=== PATIENT | male | born 1965 | race Caucasian/White ===

== ENCOUNTER 2020-10-04 01:19 | Day surgery (SDC) | payer OTHER, SELFPAY ==
[2020-10-02 13:26] VITALS: BMI 41.1
--- NOTE | 2020-10-03 14:09 | WPDANESEPPF ---
Anes - Initial Pre Proc Eval Procedure: Operation Date: 10/04/20 10:30 Proposed Procedures p Repair Umbilical Hernia with Mesh - Wesley Stallworth MD Date/Time: 10/03/20 14:09 Surgeon: Wesley Stallworth MD Pre Op Diagnosis: umbilical hernia Patient Data Age: 55 Gender: M Height: 1.85 m Weight: 141.5 kg Allergies Allergy/AdvReac Type Severity Reaction Status Date / Time No Known Drug Allergies Allergy Mild Unknown Verified 10/04/20 08:44 Home Medications Medication Instructions Recorded Confirmed Type allopurinol 300 mg tablet 300 mg PO DAILY 08/22/20 10/02/20 History cyclobenzaprine 5 mg tablet 5 mg PO TID PRN 08/22/20 10/02/20 History fenofibrate 160 mg tablet 160 mg PO DAILY 08/22/20 10/02/20 History hydrocodone 5 mg-acetaminophen 325 1 tablet PO Q8H PRN 08/22/20 10/02/20 History mg tablet levothyroxine 150 mcg tablet 150 mcg PO DAILY 08/22/20 10/02/20 History simvastatin 20 mg tablet 20 mg PO DAILY 08/22/20 10/02/20 History Patient hx anesthesia problems: none Family hx anesthesia problems: none PMFSH Past Medical History Medical History Arthritis Gout High cholesterol Hypothyroidism Surgical History Surgical History History of left knee replacement History of right inguinal hernia repair History of tonsillectomy Family History Family History Father , age 66 Cerebrovascular accident Gout Sibling , age 58 Cerebrovascular accident Sibling Diabetes mellitus Other Family history of arthritis Family history of gout Social History Social History Smoking status: Never smoker Second hand tobacco smoke exposure: Yes Alcohol intake: current Drinks per week: 2 Alcohol use details: few beers a week Substance use: never Substance use type: does not use Living arrangements: with family Additional occupation/education comments: Outside Operator Spiritual care concerns: No Anes - Eval Final PreProcedure Day of Procedure 10/03/20 14:09 Patient weight: morbidly obese Heart: regular rate and rhythm Lungs: clear to auscultation and normal air movement Airway: Mallampati scale class III Neurological: alert and oriented Last oral intake: >/= 8 hours ASA classification: III Emergent: no Anesthetic plan: proceed Anesthesia type and monitoring: general GIVS and standard monitoring Informed Consent: The patient's anesthetic plan and its attendant risks and benefits were discussed with the patient/family/POA. Questions were solicited and answers provided to the satisfaction of the patient/family/POA.
--- NOTE | 2020-10-04 07:20 | PM.SD2 ---
Same Day Admit/Disch: HPI History of Present Illness Chief complaint: umbilical hernia Narrative: Kee Pizarro is a 55 year old male With a longstanding umbilical bulge. It had been getting larger. He was seen in the office and found to have a reducible umbilical hernia. He is taken to surgery now for repair. [facility] Past Medical History Medical History Arthritis Gout High cholesterol Hypothyroidism Surgical History Surgical History History of left knee replacement History of right inguinal hernia repair History of tonsillectomy Family History Family History Father , age 66 Cerebrovascular accident Gout Sibling , age 58 Cerebrovascular accident Sibling Diabetes mellitus Other Family history of arthritis Family history of gout Social History Social History Smoking status: Never smoker Second hand tobacco smoke exposure: Yes Alcohol intake: current Drinks per week: 2 Alcohol use details: few beers a week Substance use: never Substance use type: does not use Living arrangements: with family 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 Spiritual care concerns: No Same Day Admit/Disch: Med Pre-admit Medications Home Medications Medication Instructions Recorded Confirmed Type allopurinol 300 mg tablet 300 mg PO DAILY 08/22/20 10/02/20 History cyclobenzaprine 5 mg tablet 5 mg PO TID PRN 08/22/20 10/02/20 History fenofibrate 160 mg tablet 160 mg PO DAILY 08/22/20 10/02/20 History hydrocodone 5 mg-acetaminophen 325 1 tablet PO Q8H PRN 08/22/20 10/02/20 History mg tablet levothyroxine 150 mcg tablet 150 mcg PO DAILY 08/22/20 10/02/20 History simvastatin 20 mg tablet 20 mg PO DAILY 08/22/20 10/02/20 History hydrocodone-acetaminophen 1 - 2 tablet PO Q6H PRN #20 tablet 10/04/20 Rx ketorolac 10 mg PO Q6H 4 Days #16 tablet 10/04/20 Rx Exam Const: General: comfortable, no acute distress, alert and awake HENMT: Head: normocephalic and atraumatic Mouth: Yes Normal oral and palatal mucosa present Eyes: Conjunctivae: conjunctivae normal Pupils: Equal, round and reactive pupils present EOM: EOMs intact bilaterally Neck: Neck: normal visual inspection, no lymphadenopathy and nontender Resp: Effort & Inspection: normal respiratory effort Auscultation: clear to auscultation bilaterally Cardio: Rate: regular rate Rhythm: regular rhythm Heart sounds: no gallops, no murmurs and no rubs GI: Inspection: non-distended, obesity and visible herniation ( Umbilical, large, reducible, dusky overlying skin) GI Palp: Yes Soft to palpation, No Tenderness to palpation present (GI), No Hepatomegaly present, No Splenomegaly present and Yes Hernia present ( umbilical, reducible) Skin: Lesions: no lesions Rashes: no rashes Neuro: General: no focal motor deficits and CN's II-XI intact bilaterally Cranial nerves: Yes Equal, round and reactive pupils present, Yes Bilaterally intact EOM present, Yes facial symmetry and Yes Midline tongue present Speech: normal speech Motor exam (neuro): 5/5 motor strength present throughout and Motor abnormalities not present Extrem: General: no clubbing, cyanosis or edema and edema Psych: Affect: normal affect Thought process: Normal thought process present Insight: Good insight present (Psych) DS: Summary Time Spent with Patient Time attestation: Total time spent providing and/or coordinating discharge services: DS: Admitting Diagnosis Admitting Diagnosis Admitting Diagnosis: symptomatic reducible umbilical hernia -plan to repair under anesthesia as an outpatient. The procedure the risks benefits have been discussed. All questions were answered. He understands and agrees to go ahead. Morbid obes
--- NOTE | 2020-10-04 07:24 | WPDHPUPDATE1 ---
History and Physical Update Update Date/Time: 10/04/20 07:24 History and Physical has been reviewed, including an updated exam of the patient. There are NO changes in the patient's condition. Risks, benefits, and alternatives have been discussed and questions answered. Patient agrees to proceed with procedure.
[2020-10-04 08:45] VITALS: BMI 39.6
[2020-10-04 09:15] VITALS: BP 112/67; PULSE 73; RESP 16; TEMP 36.3; O2SAT 98
[2020-10-04] MEDS: ACETAMINOPHEN 500 MG TABLET 1000 MG PO (09:29)
[2020-10-04] MEDS: LACTATED RINGERS 1,000 ML 30 ML IV CONT ×2 (09:35→11:46)
[2020-10-04] MEDS: KETOROLAC 15 MG/ML VIAL (*BKC) IV PUSH (09:36)
[2020-10-04] MEDS: ceFAZolin 3 GM/D5W 100 ML 100 ML IVPB (10:40)
[2020-10-04] MEDS: BUPIVACAINE/EPINEPHRINE 0.5% 50 ML VIAL (11:24)
--- NOTE | 2020-10-04 11:44 | W.PM.PROC2 ---
Procedure Note - Detailed Date of Procedure 10/04/20 Pre-op Diagnosis umbilical hernia Post-op Diagnosis same Procedure Performed umbilical hernia repair with 6.6 cm Parietex underlay mesh Surgeon Wesley Stallworth MD Nuclear Medicine Technician marivel juarez CAREER GUIDANCE TECHNICIAN Anesthesia general and local ( 0.5% Marcaine with epinephrine) Indications patient has an enlarging symptomatic but reducible umbilical hernia with some dusky overlying skin. He is taken to surgery now for umbilical hernia repair with mesh. Findings Showed about a 1.5 cm defect Description of Procedure patient was taken to surgery and induced into general anesthesia per LMA. Prep and drape was carried out. The proposed incision was marked along the lower margin of the umbilicus which coincided with the majority of the hernia bulge. Local was infiltrated in the area of the anticipated incision. Incision was made dissection was carried down through the skin to the subcutaneous and the hernia sac. The sac was just below the skin. I dissected the hernia sac from the overlying skin and the surrounding subcutaneous tissue. I dissected this hernia down to its neck. Additional local was infiltrated into the neck of the hernia sac. I then used the cautery to incise the hernia sac at its neck circumferentially. The sac and some of the chronically herniated omentum were removed using the cautery. No bleeding was encountered. This tissue was discarded. Some additional cautery was required for the ends of the omentum. The omentum was then reduced and I put a finger into the hernia defect and felt for any adhesions or other hernias in the area. None were found. A 6.6 cm Parietex [place] was chosen and placed in the hernia defect. It was position symmetrically. 0 Ethibond sutures were then placed in the cranial and caudad midline. These sutures were placed in such a fashion that they would advanced the edges of the hernia defect towards 1 another when tied. I then tied the transfascial sutures in the had the desired effect. The hernia defect was then closed incorporating a bit of mesh which each of the sutures. The repair looked very good. I infiltrated additional local all around the area of the repair and into the adjacent subcutaneous. I then sutured the umbilical skin to the fascia with 3 0 Vicryl suture. Subcutaneous 3 0 and 4 0 Vicryl sutures were then placed. Subcuticular interrupted 4 0 Vicryl skin stitches were placed. Finally a running 4 Monocryl skin suture was used to close the skin. Wound was dressed with Exofin surgical adhesive. The patient was awakened and taken to recovery in good condition. Sponge needle counts were correct x2. No complications were noted. Estimated Blood Loss 5 Drains No Packing No Pathology none sent Complications None Condition stable Disposition same day
[2020-10-04 11:46] VITALS: BP 115/68; PULSE 85; RESP 16; O2SAT 92
[2020-10-04 12:15] VITALS: BP 120/69; PULSE 82
--- NOTE | 2020-10-04 13:08 | SUR.PHASEII ---
Vitals weren't cycling q15 min so that is why there was a lapse in charting. Patient was stable at discharge. Spouse present in room.
== END 2020-10-04 12:53 | disposition home or self-care (01) ==
PROVIDERS: PCP Family Medicine; Visit Provider Surgery
PROC: (CPT 49585; principal; 2020-10-04 10:30)
DX: K42.9 Umbilical hernia without obstruction or gangrene (principal); E78.00 Pure hypercholesterolemia, unspecified; E03.9 Hypothyroidism, unspecified; M10.9 Gout, unspecified; M19.90 Unspecified osteoarthritis, unspecified site
CPT/HCPCS: 49585; A9270; C1781; J0690; J1885; J2704; J3010; J7120

== ENCOUNTER 2020-11-16 07:50 | Outpatient (CLI) | payer OTHER, SELFPAY ==
[2020-11-16 08:40] LABS: Alanine Aminotransferase 40 U/L (4-50); Albumin Level 4.3 g/dL (3.5-5.1); Alkaline Phosphatase 60 U/L (38-126); Anion Gap 8 mmol/L (8-16); Aspartate Amino Transferase 36 U/L (17-59); Bilirubin,Total 0.9 mg/dL (0.2-1.3); Blood Urea Nitrogen 12 mg/dL (9-20); Calcium 9.4 mg/dL (8.4-10.2); Carbon Dioxide 26 mmol/L (22-30); Chloride 104 mmol/L (98-107); Cholesterol 118 mg/dL (0-200); Estimated Glomerular Filt Rate > 60; Glucose 119 mg/dL (65-110); HDL Direct 27 mg/dL; Potassium 4.2 mmol/L (3.4-5.0); Sodium 138 mmol/L (137-145); Triglycerides 125 mg/dL (<150)
[2020-11-16 08:41] LABS: LDL Cholesterol Direct 56 mg/dL
[2020-11-16 09:01] LABS: Prostate Specific Antigen 0.3 ng/mL (< OR = 4.0)
== END 2020-11-16 07:51 | disposition home or self-care (01) ==
PROVIDERS: PCP Family Medicine; Visit Provider Family Medicine
DX: Z13.220 Encounter for screening for lipoid disorders (principal); E03.9 Hypothyroidism, unspecified; Z12.5 Encounter for screening for malignant neoplasm of prostate
CPT/HCPCS: 36415; 80053; 80061; 84153; 84443; G0103

== ENCOUNTER 2023-01-23 05:21 | Day surgery (SDC) | payer OTHER, SELFPAY ==
[2023-01-12 11:56] VITALS: BMI 37.8
--- NOTE | 2023-01-22 13:08 | P.PNAN_ITS ---
Anes - Initial Pre Proc Eval Procedure: Operation Date: 01/23/23 09:30 Proposed Procedures p Screening Colonoscopy - Alejandro Liu MD Date/Time: 01/22/23 13:08 Surgeon: Alejandro Liu MD Pre Op Diagnosis: neoplasm screening Patient Data Age: 57 Gender: M Height: 1.85 m Weight: 130 kg Allergies Allergy/AdvReac Type Severity Reaction Status Date / Time No Known Drug Allergies Allergy Mild Unknown Verified 01/23/23 08:24 Home Medications Medication Instructions Recorded Confirmed Type allopurinol 300 mg tablet 300 mg PO DAILY 08/22/20 01/23/23 History cyclobenzaprine 5 mg tablet 5 mg PO TID PRN Anxiety 08/22/20 01/23/23 History fenofibrate 160 mg tablet 160 mg PO DAILY 08/22/20 01/23/23 History hydrocodone 5 mg-acetaminophen 325 1 tablet PO Q8H PRN pain 08/22/20 01/23/23 History mg tablet levothyroxine 150 mcg tablet 150 mcg PO DAILY 08/22/20 01/23/23 History (Synthroid) simvastatin 20 mg tablet 20 mg PO DAILY 08/22/20 01/23/23 History phentermine 37.5 mg tablet 37.5 mg PO DAILY 01/12/23 01/23/23 History Patient hx anesthesia problems: none Family hx anesthesia problems: none Results Review: All pre-operative results and documents have been reviewed as part of the pre- operative evaluation. [facility] Past Medical History Medical History Arthritis Gout High cholesterol Hypothyroidism Surgical History Surgical History H/O umbilical hernia repair umbilical hernia repair with 6.6 cm Parietex underlay mesh History of left knee replacement History of right inguinal hernia repair History of tonsillectomy Family History Family History Father , age 66 Cerebrovascular accident Gout Sibling , age 58 Cerebrovascular accident Sibling Diabetes mellitus Other Family history of arthritis Family history of gout Social History Social History Second hand tobacco smoke exposure: Yes Alcohol intake: current Drinks per week: 2 Alcohol use details: few beers a week Substance use: never Substance use type: does not use Living arrangements: with family Occupation/Education: occupation 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 Informed Consent: The patient's anesthetic plan and its attendant risks and benefits were discussed with the patient/family/POA. Questions were solicited and answers provided to the satisfaction of the patient/family/POA.
--- NOTE | 2023-01-22 15:19 | P.HP_ITS ---
History of Present Illness History of Present Illness Consent: Risks, benefits, and alternatives have been discussed and questions answered. Patient agrees to proceed with procedure. Chief complaint: neoplasm screening Narrative: Kee Pizarro is a 57 year old male who is referred for colon cancer screening. Review of Systems Review of Systems: All systems reviewed & are unremarkable except as noted in HPI and below PMFSH Past Medical History Medical History Arthritis Gout High cholesterol Hypothyroidism Surgical History Surgical History H/O umbilical hernia repair umbilical hernia repair with 6.6 cm Parietex underlay mesh History of left knee replacement History of right inguinal hernia repair History of tonsillectomy Family History Family History Father , age 66 Cerebrovascular accident Gout Sibling , age 58 Cerebrovascular accident Sibling Diabetes mellitus Other Family history of arthritis Family history of gout Social History Social History Second hand tobacco smoke exposure: Yes Alcohol intake: current Drinks per week: 2 Alcohol use details: few beers a week Substance use: never Substance use type: does not use Living arrangements: with family Occupation/Education: occupation 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 Spiritual care concerns: No Meds Home Medications and Allergies Home Medications Medication Instructions Recorded Confirmed Type allopurinol 300 mg tablet 300 mg PO DAILY 08/22/20 01/23/23 History cyclobenzaprine 5 mg tablet 5 mg PO TID PRN Anxiety 08/22/20 01/23/23 History fenofibrate 160 mg tablet 160 mg PO DAILY 08/22/20 01/23/23 History hydrocodone 5 mg-acetaminophen 325 1 tablet PO Q8H PRN pain 08/22/20 01/23/23 History mg tablet levothyroxine 150 mcg tablet 150 mcg PO DAILY 08/22/20 01/23/23 History (Synthroid) simvastatin 20 mg tablet 20 mg PO DAILY 08/22/20 01/23/23 History phentermine 37.5 mg tablet 37.5 mg PO DAILY 01/12/23 01/23/23 History Allergies Allergy/AdvReac Type Severity Reaction Status Date / Time No Known Drug Allergies Allergy Mild Unknown Verified 01/23/23 08:24 Exam Const: General: alert Orientation/consciousness: patient oriented x3 Resp: Auscultation: clear to auscultation bilaterally Cardio: Rhythm: regular rhythm GI: GI Palp: Yes Soft to palpation and No Tenderness to palpation present (GI) Neuro: General: patient oriented x3 Assessment and Plan Assessment and plan (1) Colon cancer screening: Code(s): Z12.11 - Encounter for screening for malignant neoplasm of colon Status: Acute Assessment and Plan: Colonoscopy with possible biopsy or polypectomy or cautery or injection of substances.
[2023-01-23 08:25] VITALS: BP 132/76; PULSE 69; RESP 16; TEMP 36.6; O2SAT 99; BMI 37.4
[2023-01-23] MEDS: LACTATED RINGERS 1,000 ML 150 ML IV CONT (08:34)
[2023-01-23 09:35] VITALS: BP 100/71; PULSE 74; RESP 17; O2SAT 97
[2023-01-23 09:45] VITALS: BP 109/77; PULSE 63; RESP 17; O2SAT 97
[2023-01-23 09:55] VITALS: BP 115/74; PULSE 60; RESP 18; O2SAT 97
== END 2023-01-23 10:01 | disposition home or self-care (01) ==
PROVIDERS: PCP Family Medicine; Visit Provider Internal Medicine Gastroenterology
PROC: 0DJD8ZZ Inspection of Lower Intestinal Tract, Via Natural or Artificial Opening Endoscopic (ICD-10-PCS; CPT 45378; principal; 2023-01-23 09:30)
DX: Z12.11 Encounter for screening for malignant neoplasm of colon (principal); D12.5 Benign neoplasm of sigmoid colon; E03.9 Hypothyroidism, unspecified; E78.00 Pure hypercholesterolemia, unspecified; M10.9 Gout, unspecified; E66.9 Obesity, unspecified; Z68.37 Body mass index [BMI] 37.0-37.9, adult
CPT/HCPCS: 45378; 88305; J2704; J7120

== ENCOUNTER 2024-09-20 10:14 | Outpatient (CLI) | payer OTHER, SELFPAY ==
--- NOTE | ~2024-09-20 | XR_ITS ---
3 VIEWS LUMBAR SPINE Ordering provider: Thaddeus Saavedra, History: . Low back pain, other chronic pain . Comparison: None. FINDINGS: VERTEBRAL BODIES:Minimal anterolisthesis at the level of L4-L5. No visible fracture or subluxation. Degenerative changes of the spine. Mild scoliosis. DISK SPACES: Narrowing of the disc L1-L2, L2-L3, and L4-L5. Multilevel facet joint disease. SOFT TISSUES: Normal. IMPRESSION: No acute osseous abnormality lumbar spine. Multilevel degenerative disc disease. Reviewed, dictated and finalized at location A.
== END 2024-09-20 10:15 | disposition home or self-care (01) ==
LOC: MICIMG 10:16
PROVIDERS: PCP Family Medicine; Visit Provider Family Medicine
DX: M51.360 Other intervertebral disc degeneration, lumbar region with discogenic back pain only (principal); G89.29 Other chronic pain
CPT/HCPCS: 72110

== ENCOUNTER 2024-12-15 06:45 | Outpatient (CLI) | payer OTHER, SELFPAY ==
[2024-12-15 07:09] LABS: Hematocrit 47.3 % (42.0-52.0); Hemoglobin 16.2 g/dL (14.0-18.0); Immature Granulocyte Percent A 0.8 % (0-0.5); Lymphocytes Absolute Auto 1.74 K/mm3 (0.9-3.2); Mean Corpuscular HGB Conc 34.2 g/dl (32-36); Mean Corpuscular Hemoglobin 32.3 pg (26-34); Mean Corpuscular Volume 94.4 fl (80-100); Nucleated Red Blood Cells Absolute Auto 0.000 K/mm3 (0.0-0.012); Nucleated Red Blood Cells Perc 0.0 % (0.0-0.2); Platelet Count Result 263 k/mm3 (150-375); Red Blood Count 5.01 M/mm3 (4.6-6.20); White Blood Count 9.0 K/mm3 (4.5-10.0)
[2024-12-15 07:33] LABS: Alanine Aminotransferase 26 U/L (6-50); Albumin Level 4.1 g/dL (3.5-5.1); Alkaline Phosphatase 58 U/L (38-126); Anion Gap 8 mmol/L (4-12); Aspartate Amino Transferase 23 U/L (17-59); Bilirubin,Total 0.7 mg/dL (0.2-1.3); Blood Urea Nitrogen 19 mg/dL (9-20); Calcium 9.5 mg/dL (8.4-10.2); Carbon Dioxide 22 mmol/L (22-30); Chloride 107 mmol/L (98-107); Cholesterol 132 mg/dL (0-200); Estimated Glomerular Filt Rate > 60; Glucose 138 mg/dL (65-110); HDL Direct 51 mg/dL; Magnesium 2.3 mg/dL (1.6-2.3); Potassium 4.3 mmol/L (3.4-5.0); Sodium 137 mmol/L (137-145); Total Protein 7.2 g/dL (6.3-8.2); Triglycerides 47 mg/dL (<150); Uric Acid 4.4 mg/dL (3.5-8.5)
[2024-12-15 07:41] LABS: Add Urine Microscopic? YES; Appearance Urine Clear (Clear); Glucose Urine UA Negative (Negative); Leukocyte Esterase Ur Negative LEU/UL (Negative); Nitrate Urine Negative (Negative); Non Pathogenic Casts 0-2; Specific Grav Ur 1.021 (1.001-1.035)
[2024-12-15 07:43] LABS: Hemoglobin A1C 5.5 % (<5.7)
[2024-12-15 08:08] LABS: Prostate Specific Antigen 0.3 ng/mL (< OR = 4.0)
[2024-12-15 08:44] LABS: Vitamin B12 668.0 pg/mL (239-931)
[2024-12-15 09:39] LABS: Thyroid Stimulating Hormone Reflex 0.128 uIU/mL (0.465-4.68)
[2024-12-15 10:26] LABS: Free T4 Free Thyroxine Reflex 1.30 ng/dL (0.78-2.19)
[2024-12-15 11:11] LABS: Total Triiodothyronine (T3) 1.03 NG/ML (0.82-1.58)
== END 2024-12-15 06:46 | disposition home or self-care (01) ==
LOC: ANHLAB 06:47
PROVIDERS: PCP Family Medicine; Visit Provider Family Medicine
DX: Z00.00 Encounter for general adult medical examination without abnormal findings (principal); I10 Essential (primary) hypertension; E66.9 Obesity, unspecified; R78.89 Finding of other specified substances, not normally found in blood; E55.9 Vitamin D deficiency, unspecified; M10.9 Gout, unspecified; M54.50 Low back pain, unspecified; G89.29 Other chronic pain; R79.89 Other specified abnormal findings of blood chemistry
CPT/HCPCS: 36415; 80053; 80061; 81001; 82306; 82607; 82746; 83036; 83735; 84153; 84439; 84443; 84480; 84550; 85025; G0103

== ENCOUNTER 2025-01-04 08:34 | Outpatient (CLI) | payer OTHER, SELFPAY ==
--- NOTE | ~2025-01-04 | MR_ITS ---
EXAMINATION: MR lumbar spine matt esquivel, 01/04/2025 8:45 CDT HISTORY: Lbp COMPARISON: None TECHNIQUE: Multi-planar multi-sequence images were obtained of the lumbar spine without contrast per protocol. FINDINGS: Moderate loss of vertebral height throughout. Grade 1 anterolisthesis of L4 on L5, no fracture is identified. There are scattered areas of probable hemangioma formation otherwise marrow signal is appropriate. There is no abnormal signal within the posterior elements. Posterior alignment appears intact Conus terminates at T12-L1, no abnormal signal in the cord Moderate loss of disc height throughout most marked at L4-5 and L5-S1 with moderate disc desiccation and endplate degenerative changes most marked at L4-5 and L5-S1 L5-S1: Circumferential bulging of the disc with ligamentum flavum and facet hypertrophy. Severe bilateral foramina, lateral recess and moderate canal stenosis. L4-5: Circumferential bulging of the disc with ligamentum flavum and facet hypertrophy. Severe bilateral foramina, lateral recess and canal stenosis. L3-4: Circumferential bulging of the disc with ligamentum flavum and facet hypertrophy. Moderate to severe bilateral foramina, lateral recess and mild canal stenosis. L2-L3: Circumferential bulging of the disc with ligamentum flavum and facet hypertrophy. Mild bilateral foramina and lateral recess stenosis, no canal stenosis. L1-L2: No canal or foraminal stenosis IMPRESSION: Degenerative changes detailed above Reviewed, dictated and finalized at location P.
== END 2025-01-04 08:35 | disposition home or self-care (01) ==
LOC: MICIMG 08:36
PROVIDERS: PCP Family Medicine; Visit Provider Nurse Practitioner Family
DX: M43.16 Spondylolisthesis, lumbar region (principal); R29.890 Loss of height; M51.360 Other intervertebral disc degeneration, lumbar region with discogenic back pain only; M48.061 Spinal stenosis, lumbar region without neurogenic claudication; M48.07 Spinal stenosis, lumbosacral region
CPT/HCPCS: 72148